=== PATIENT | male | born 1995 | race Two or more races ===

== ENCOUNTER 2020-07-09 17:03 | Emergency (ER) | payer OTHER, SELFPAY ==
[2020-07-09 17:12] VITALS: BP 103/75; PULSE 78; RESP 16; TEMP 36.7; O2SAT 98; BMI 23.8
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
== END 2020-07-09 20:00 | disposition home or self-care (01) ==
PROVIDERS: Emergency Provider Emergency Medicine
DX: S16.1XXA Strain of muscle, fascia and tendon at neck level, initial encounter (principal); V43.62XA Car passenger injured in collision with other type car in traffic accident, initial encounter; Y93.9 Activity, unspecified; Y92.414 Local residential or business street as the place of occurrence of the external cause; Y99.9 Unspecified external cause status
CPT/HCPCS: 99283; 99284

== ENCOUNTER 2020-08-11 12:03 | Emergency (ER) | payer OTHER, SELFPAY ==
[2020-08-11 12:29] VITALS: BP 122/52; PULSE 88; RESP 16; TEMP 37; O2SAT 98; BMI 22.7
--- NOTE | 2020-08-11 12:31 | XR_ITS ---
EXAMINATION: XR MANDIBLE CLINICAL INFORMATION: Patient had dental extraction last week. Question dislocated. Leftward facing COMPARISON: None TECHNIQUE: 4 views of the mandible were obtained. FINDINGS: No fracture of the mandible seen. No acute sinusitis. The temporomandibular joints are not well evaluated. No gross evidence of dislocation. Lung apices are clear. XR/XR mandible min 4V IMPRESSION: Limited evaluation of the temporomandibular joints. No fracture of the mandible seen.
--- NOTE | 2020-08-11 13:50 | ED.DENTAL ---
HPI - Dental/Oral General Chief complaint: Dental/Oral <LINDA Richardson - Last Filed: 08/11/20 14:56> Stated complaint: JAW PAIN <LINDA Richardson Last Filed: 08/11/20 14:56> Time Seen by Provider: 08/11/20 12:23 <LINDA Richardson Last Filed: 08/11/20 14:56> Source: patient <LINDA Richardson Last Filed: 08/11/20 14:56> Mode of arrival: ambulatory <LINDA Richardson Last Filed: 08/11/20 14:56> History of Present Illness HPI Narrative: 24-year-old male with a past medical history of right lower wisdom tooth removal 1.5 weeks ago presents to the ED complaining of misaligned jaw. Reports he is unable to fully close jaw since procedure. Reports mild residual pain. Denies ear pain, sore throat, oral swelling, inability to swallow, difficulty breathing, SOB, fever/chills. Denies direct trauma/falls or injury <LINDA Richardson Last Filed: 08/11/20 14:56> Related Data Home medications: Previous Rx's Medication Instructions Recorded ibuprofen 800 mg PO Q8H PRN #14 tab 07/09/20 ibuprofen 600 mg PO Q8H PRN #20 tab 08/11/20 prednisone See Rx Instructions .ROUTE 08/11/20 .COMPLEX #10 tab <LINDA Richardson - Last Filed: 08/11/20 14:56> Allergies/adverse reactions: Allergies Allergy/AdvReac Type Severity Reaction Status Date / Time No Known Allergies Allergy Verified 08/11/20 12:29 [No Known Allergies*] <LINDA Richardson - Last Filed: 08/11/20 14:56> Review of Systems Review of Systems: Constitutional: No Weight loss, No Fever, No Chills ENT/Mouth: No Ear Pain, No Nasal Congestion, No Sinus Pain, No sore throat, No Rhinorrhea, No Swallowing Difficulty, +misaligned jaw Cardiovascular: No Chest Pain, No SOB Respiratory: No Cough, No Sputum, No Wheezing Skin: No Skin Lesions, No rash <LINDA Richardson Last Filed: 08/11/20 14:56> Yes all other systems are reviewed and are negative <LINDA Richardson - Last Filed: 08/11/20 14:56> [facility] Past Medical History Attestation statement: The following information was validated with the patient. <LINDA Richardson - Last Filed: 08/11/20 14:56> Medical History: Medical History (Updated 08/12/20 @ 00:21 by Benjie Cool) Patient denies significant medical history <LINDA Richardson - Last Filed: 08/11/20 14:56> Social History Social History: Social History Advance Directives: No Advance Directives Information Provided: No <LINDA Richardson - Last Filed: 08/11/20 14:56> Physical Exam Vital Signs: Vital Signs: Last Vital Signs Temp 98.6 F 08/11/20 12:29 Pulse 88 08/11/20 12:29 Resp 16 08/11/20 12:29 BP 122/52 L 08/11/20 12:29 Pulse Ox 98 08/11/20 12:29 Body Mass Index 22.7 <LINDA Richardson - Last Filed: 08/11/20 14:56> Vital Signs: Last Vital Signs Temp 98.6 F 08/11/20 12:29 Pulse 88 08/11/20 12:29 Resp 16 08/11/20 12:29 BP 122/52 L 08/11/20 12:29 Pulse Ox 98 08/11/20 12:29 Body Mass Index 22.7 <Alejandro Lindsay MD - Last Filed: 08/14/20 02:41> Const: General: cooperative and healthy appearing <LINDA Richardson - Last Filed: 08/11/20 14:56> Orientation/consciousness: patient oriented x3 <LINDA Richardson - Last Filed: 08/11/20 14:56> Limitations: no limitations <LINDA Richardson - Last Filed: 08/11/20 14:56> HENMT: Other: jaw misaligned leftward. Mild right-sided facial swelling noted. + right lower molar removed, no surrounding gingivitis, no fluctuance or induration to face or intraorally. No active cellulitis no TMJ ttp <LINDA Richardson - Last Filed: 08/11/20 14:56> Head: Yes normal to inspection <LINDA Richardson - Last Filed: 08/11/20 14:56> Ears: hearing grossly normal bilaterally and TM's normal bilaterally <Salome Khan MA - Last Filed: 08/11/20 14:56> General nose exam: Normal external nose present <LINDA Richardson - Last Filed: 08/11/20 14:56> Mouth: Normal oral and palatal mucosa present and no drooling <Salome Khan MA - Last Filed: 08/11/20 14:56> Throat: Yes uvula midline <Salome Khan MA - Last Filed: 08/11/20 14:56> Eyes: General: appearance normal, both eyes and all related structures <Salome Khan MA - Last Filed: 08/11/20 14:56> EOM: EOMs intact bilaterally <LINDA Richardson - Last Filed: 08/11/20 14:56> Neck: Neck: Yes normal visual inspection <LINDA Richardson - Last Filed: 08/11/20 14:56> Resp: Effort & Inspection: normal respiratory effort and no stridor <LINDA Richardson - Last Filed: 08/11/20 14:56> Skin: Rashes: no rashes <Salome Khan MA - Last Filed: 08/11/20 14:56> Wounds: no wounds <Salome Kahn [facility] Last Filed: 08/11/20 14:56> Neuro: Other: CN's intact <LINDA Richardson Last Filed: 08/11/20 14:56> General: patient oriented x3, tone normal and Normal light touch and pain sensation <LINDA Richardson - Last Filed: 08/11/20 14:56> Gait exam (Neuro): Normal gait present <LINDA Richardson - Last Filed: 08/11/20 14:56> Extrem: General: Yes normal to inspection <LINDA Richardson - Last Filed: 08/11/20 14:56> Course Course Course Narrative: I have reviewed the chart <Alejandro Lindsay MD - Last Filed: 08/14/20 02:41> MDM - Dental/Oral MDM Narrative Medical decision making narrative: Concern for possible fracture/dislocation vs facial nerve palsy or paralysis/inflammation. Lower concern for intraoral/dental abscess as no active signs of infection Exam not consistent with Cho's palsy Plan: X-ray <LINDA Richardson Last Filed: 08/11/20 14:56> Discharge Plan Discharge Clinical Impression: Facial nerve paralysis <LINDA Richardson Last Filed: 08/11/20 14:56> Patient Disposition: Home, Self-Care <LINDA Richardson Last Filed: 08/11/20 14:56> Instructions: Paresthesia (ED) <LINDA Richardson Last Filed: 08/11/20 14:56> Additional Instructions: It is likely you have a facial nerve paralysis from her recent surgery Prednisone as a steroid, take as prescribed In addition ibuprofen will help with pain/swelling You should take Tylenol as well You need to follow-up with her dentist as soon as possible If symptoms are not improving, or are persistent follow-up with an ENT doctor in 1 week <LINDA Richardson Last Filed: 08/11/20 14:56> Prescriptions: New ibuprofen 600 mg tablet 600 mg PO Q8H PRN (Reason: fever or pain) Qty: 20 RF: 0 prednisone 10 mg tablet See Rx Instructions .ROUTE .COMPLEX Qty: 10 RF: 0 No Action ibuprofen 800 mg tablet 800 mg PO Q8H PRN (Reason: pain) Qty: 14 RF: 1 <LINDA Richardson Last Filed: 08/11/20 14:56> Referrals: Ronald Daly [Physician] - 1 week Physician,None [Primary Care Provider] - 5 days (Follow-up with her dentist is in 5-7 days) <LINDA Richardson Last Filed: 08/11/20 14:56> Interventions: ED Discharge Assessment Last Done: 08/11/20 14:16 <LINDA Richardson Last Filed: 08/11/20 14:56> Discharge Date/Time: 08/11/20 14:16 <LINDA Richardson Last Filed: 08/11/20 14:56>
== END 2020-08-11 14:16 | disposition home or self-care (01) ==
PROVIDERS: Emergency Provider Emergency Medicine
DX: G51.0 Bell's palsy (principal); Z79.899 Other long term (current) drug therapy
CPT/HCPCS: 70110; 99283

== ENCOUNTER 2021-03-26 16:45 | Emergency (ER) | payer OTHER, SELFPAY ==
[2021-03-26 16:51] VITALS: BP 107/56; PULSE 68; RESP 18; TEMP 36.7; O2SAT 96; BMI 27.8
--- NOTE | 2021-03-26 17:01 | ED.LOWEXIN ---
HPI - Extremity Injury (Lower) General Chief Complaint: Extremity Injury, Lower Stated Complaint: Sprained Ankle Time Seen by Provider: 03/26/21 16:58 Source: patient Mode of arrival: ambulatory Limitations: no limitations History of Present Illness HPI Narrative: 25 y/o male presenting with mild right ankle pain after he sprained it while walking this morning. He has some mild discomfort but is able to walk normally, has no swelling or bruising. His work encouarged him to get evaluated and cleared for work on Monday. complaint: ankle injury Onset (ago): hour(s) Injury: Right: ankle Type of Injury: inversion Place: work Severity: mild Severity scale (1-10): 2 Relieving factors: immobilization and rest Exacerbating factors: weight bearing Context: walking Associated symptoms: ambulatory Other symptoms: none Treatments prior to arrival: cold therapy Related Data Previous Rx's Medication Instructions Recorded ibuprofen 800 mg PO Q8H PRN #14 tab 07/09/20 ibuprofen 600 mg PO Q8H PRN #20 tab 08/11/20 prednisone See Rx Instructions .ROUTE 08/11/20 .COMPLEX #10 tab ibuprofen 600 mg PO Q8H PRN #10 tab 03/26/21 Allergies Allergy/AdvReac Type Severity Reaction Status Date / Time No Known Allergies Allergy Verified 03/26/21 16:47 [No Known Allergies*] Review of Systems Review of Systems: Constitutional: No Fever, No Chills Gastrointestinal: No Nausea, No Vomiting Musculoskeletal: + joint pain, No Myalgias Skin: No Skin Lesions, No rash Neuro: No Weakness, No Numbness Heme/Lymph: No Bruising, No Lymphadenopathy E PMFSH Past Medical History Attestation statement: The following information was validated with the patient. Medical History (Updated 03/26/21 @ 17:05 by LINDA Mabry) Patient denies significant medical history Social History Social History Advance Directives: No Advance Directives Information Provided: Yes Physical Exam Vital Signs: Vital Signs: Last Vital Signs Temp 98.0 F 03/26/21 16:51 Pulse 68 03/26/21 16:51 Resp 18 03/26/21 16:51 BP 107/56 L 03/26/21 16:51 Pulse Ox 96 03/26/21 16:51 Body Mass Index 27.8 Appearance: Alert. Oriented X3. No acute distress. HEENT: normal inspection CVS: Normal heart rate and rhythm. Pulses normal. Respiratory: No respiratory distress. Skin: Skin warm and dry. Normal skin color. Normal skin turgor. No rashes. Extremities: normal appearing right ankle. mild tenderness distal to lateral malleolus without swelling, erythma or ecchymosis. normal ROM of the ankle. normal gait. NV intact distally. Neuro: Oriented X 3. No motor deficit. No sensory deficit. Course Course Course Narrative: 25 y/o male presenting with mild right ankle pain after he sprained it this morning. Declining x-ray. Very low clinical suspicion for acute fracture given his exam findings. Placed in DOMI wrap for comfort and support. NSAIDs, rest, elevation encouraged. Patient is stable for d/c home and return to work on Monday. Discharge Plan Discharge Clinical Impression: Ankle sprain and strain Patient Disposition: Home, Self-Care Instructions: Ankle Sprain (ED) Additional Instructions: Rest you ankle and elevate your foot when possible. Recommend DOMI wrap for support and compression. Use ice several times per day for the next 48 hours. You may bear weight as tolerated. Take Motrin and/or Tylenol as needed for pain. Follow up with your doctor as needed. Prescriptions: New ibuprofen 600 mg tablet 600 mg PO Q8H PRN (Reason: pain) Qty: 10 RF: 0 No Action ibuprofen 800 mg tablet 800 mg PO Q8H PRN (Reason: pain) Qty: 14 RF: 1 ibuprofen 600 mg tablet 600 mg PO Q8H PRN (Reason: fever or pain) Qty: 20 RF: 0 prednisone 10 mg tablet See Rx Instructions .ROUTE .COMPLEX Qty: 10 RF: 0
== END 2021-03-26 17:13 | disposition home or self-care (01) ==
PROVIDERS: Emergency Provider Internal Medicine
DX: S93.401A Sprain of unspecified ligament of right ankle, initial encounter (principal); S96.911A Strain of unspecified muscle and tendon at ankle and foot level, right foot, initial encounter; X50.1XXA Overexertion from prolonged static or awkward postures, initial encounter; Y93.9 Activity, unspecified; Y92.89 Other specified places as the place of occurrence of the external cause; Y99.0 Civilian activity done for income or pay
CPT/HCPCS: 99283

== ENCOUNTER 2022-01-12 00:48 | Emergency (ER) | payer OTHER, SELFPAY | END 2022-01-12 01:23 | disposition left against medical advice (07) | PROVIDERS: Emergency Provider Emergency Medicine | DX: M79.643 Pain in unspecified hand (principal) ==